=== PATIENT | female | born 1975 | race Caucasian/White ===

== ENCOUNTER 2017-12-06 14:09 | Day surgery (SDC) | payer OTHER ==
[2017-12-06 14:41] VITALS: BMI 22.9
[2017-12-06] MEDS ORDERED: LACTATED RINGERS SOLUTION 1,000 ML IV SCH (15:00)
--- NOTE | 2017-12-06 15:01 | HP ---
Admitting History and Physical - Admission Chief Complaint: left hand laceration History of Present Illness: 2 yo RHD female with no significant PMH presented 2 days chain saw left hand zone iii and iv extensor tendon laceration index middle and ring finger and Open left index proximal phalanx fracture. she sustained the injury on monday 12/04, was seen at [facility]. hand wounds cleaned and skin repaired. started on oral antibiotics, was not splinted. She presented here when her scheduled surgery was cancelled. We were asked to assess. History Source: Patient, Medical Record Limitations to Obtaining History: No Limitations - Past Medical History ...LMP: 11/15/17 - Smoking History Smoking history: Never smoked Have you smoked in the past 12 months: No - Alcohol/Substance Use Hx Alcohol Use: No - Social History Usual Living Arrangement: Yes: With Spouse Home Medications - Allergies Allergies/Adverse Reactions: Allergies Allergy/AdvReac Type Severity Reaction Status Date / Time No Known Allergies Allergy Verified 12/06/17 14:53 - Home Medications Home Medications: Ambulatory Orders Amoxicillin/Potassium Clav [Augmentin 875-125 Tablet] 1 each PO BID 12/06/17 Review of Systems - Review of Systems Constitutional: denies: Chills, Fever Eyes: denies: Blind Spots, Blurred Vision HENT: denies: Difficult Swallowing Neck: denies: Decreased ROM, Lumps Cardiovascular: denies: Chest Pain, Palpitations Respiratory: denies: Cough, SOB Gastrointestinal: denies: Abdominal Pain, Constipation, Diarrhea Genitourinary: denies: Flank Pain, Frequency Breasts: denies: Lumps, Pain Musculoskeletal: denies: Back Pain, Muscle Pain, Muscle Cramps, Muscle Weakness Neurological: denies: Change in LOC, Change in Speech Endocrine: denies: Excessive Sweating, Unexplained Weight Gain, Unexplained Weight Loss Hematology/Lymphatic: denies: Easily Bruised, Excessive Bleeding Psychiatric: denies: Anxiety, Depression Physical Examination Vital Signs: Vital Signs Temperature 97.5 F L 12/06/17 14:48 Pulse Rate 63 12/06/17 14:48 Respiratory Rate 16 12/06/17 14:48 Blood Pressure 132/80 12/06/17 14:48 O2 Sat by Pulse Oximetry (%) 97 12/06/17 14:45 Constitutional: Yes: Well Nourished, No Distress, Calm Eyes: Yes: Conjunctiva Clear, EOM Intact HENT: Yes: Atraumatic, Normocephalic Neck: Yes: Supple, Trachea Midline Cardiovascular: Yes: Regular Rate and Rhythm, S1, S2 Respiratory: Yes: Regular, CTA Bilaterally Gastrointestinal: Yes: Normal Bowel Sounds, Soft ...Rectal Exam: Yes: Deferred Renal/: No: CVA Tenderness - Left, CVA Tenderness - Right Musculoskeletal: No: Joint Swelling, Muscle Pain, Muscle Weakness Extremities: Yes: Other (left hand dorsal zone iii and iv tendon lacertaion with index is weak extension, middle). No: Calf Tenderness, Cool, Erythema Edema: LUE: 1+ (limited to fingers and dorsum of the hand ) Peripheral Pulses: Left Radial: 2+, Right Radial: 2+ Integumentary: No: Jaundice, Rash Neurological: Yes: Alert, Oriented Psychiatric: Yes: Alert, Oriented Imaging - Results X-ray: Report Reviewed, Image Reviewed (left index finger proximal radial condyle cortical defect) Problem List - Problems (1) Extensor tendon laceration of finger with open wound Assessment/Plan: 42 yo RHD female with no significant PMH presented 2 days chain saw left hand zone iii and iv extensor tendon laceration index middle and ring finger and Open left index proximal phalanx fracture. NPO IVF IV antibiotics Urgent OR Discussed with patient risks, benefits and alternatives of left hand wound 2- 4th digit wound exploration and report of extensor tendons, including but not limited to bleeding, infection, injury to adjacent structures, loss of function , need for further procedures, ; alternatives include antibiotics, delayed or no surgery - risks of this include failure of nonoperative therapy, stiffness and loss of function, recurrence. Patient desires to proceed with operation - will take to OR for above. Informed consent signed for same. Code(s): S66.529A - LACERAT INTRNS MUSC/FASC/TEND UNSP FNGR AT WRS/HND LV, INIT ; S61.209A - UNSP OPEN WOUND OF UNSP FINGER W/O DAMAGE TO NAIL, INIT Qualifiers: Encounter type: subsequent encounter Qualified Code(s): S66.529D - Laceration of intrinsic muscle, fascia and tendon of unspecified finger at wrist and hand level, subsequent encounter; S61.209D - Unspecified open wound of unspecified finger without damage to nail, subsequent encounter; S61.209D - Unspecified open wound of unspecified finger without damage to nail, subsequent encounter (2) Open fracture proximal phalanx finger Code(s): S62.619B - DISP FX OF PROXIMAL PHALANX OF UNSP FINGER, INIT FOR OPN FX Qualifiers: Encounter type: subsequent encounter Finger: index finger Laterality: left (3) Migraine Code(s): G43.909 - MIGRAINE, UNSP, NOT INTRACTABLE, WITHOUT STATUS MIGRAINOSUS
[2017-12-06] MEDS ORDERED: PIPERACILLIN/TAZOB 3.375 GM 3.375 GM in DEXTROSE 5%-WATER - 50 ML IVPB ONE (16:21)
[2017-12-06] MEDS ORDERED: ROPIVACAINE HCL 0.5% 30ML VIAL ONE (16:49)
[2017-12-06] MEDS ORDERED: DEXAMETHASONE SOD PHOSPHATE/PF 10 MG/ML SDV ONE (16:50)
[2017-12-06] MEDS ORDERED: MIDAZOLAM HCL 2 MG/2 ML SINGLE DOSE VIAL ONE ×2 (16:51)
[2017-12-06] MEDS ORDERED: PROPOFOL 20 ML ONE ×2 (17:13)
[2017-12-06] MEDS ORDERED: PIPERACILLIN/TAZOBACTAM 3.375 GM VIAL IVPB ONE (17:36)
[2017-12-06] MEDS ORDERED: BACITRACIN 15 GM TUBE TOPICAL OINTMENT ONE (18:18)
[2017-12-06] MEDS ORDERED: LIDOCAINE 1%/EPI 1:100000 (20 ML MULTI DOSE VIAL) ONE (18:18)
[2017-12-06] MEDS ORDERED: oxyCODONE HCL 5 MG TABLET PO PRN (18:53)
[2017-12-06] MEDS ORDERED: ACETAMINOPHEN 325 MG TABLET (FP) PO PRN (18:53)
[2017-12-06] MEDS ORDERED: ONDANSETRON 4 MG/2 ML VIAL IVPUSH PRN (18:53)
--- NOTE | 2017-12-06 18:59 | OP ---
Operative Note - Note: Operative Date: 12/06/17 Pre-Operative Diagnosis: chain saw laceration left index middle and ring finger Operation: exploration of left index middle and ring finger, repair of extensor tendon zone III 80% middle and repair of extensor tendon zone III 60% index Findings: extensor tendon zone III 80% middle extensor tendon zone III 60% index Tourniquet time: 1:03 at 250mmhg Implants: k wire 0.45 X2 internal splint Post-Operative Diagnosis: Same as Pre-op Surgeon: Mike Hwang Anesthesiologist/FRUIT DUMPER: Siddhartha Esparza Anesthesia: Local (left supraclavicular block), MAC Specimens Removed: none Estimated Blood Loss (mls): 2 Instrument used (Debridements only): scapel, scissors tenotomy, Drains & Tubes with Location: none Fluid Volume Replaced (mls): 1,000 Operative Report Dictated: Yes
--- NOTE | 2017-12-06 19:19 | DS ---
Physical Examination Vital Signs: Vital Signs Temperature 97.5 F L 12/06/17 14:48 Pulse Rate 63 12/06/17 14:48 Respiratory Rate 16 12/06/17 14:48 Blood Pressure 132/80 12/06/17 14:48 O2 Sat by Pulse Oximetry (%) 97 12/06/17 14:45 Constitutional: Yes: Well Nourished, No Distress, Calm Eyes: Yes: Conjunctiva Clear, EOM Intact HENT: Yes: Atraumatic, Normocephalic Neck: Yes: Supple, Trachea Midline Cardiovascular: Yes: Regular Rate and Rhythm, S1, S2 Respiratory: Yes: Regular, CTA Bilaterally Gastrointestinal: Yes: Normal Bowel Sounds, Soft ...Rectal Exam: Yes: Deferred Renal/: No: CVA Tenderness - Left, CVA Tenderness - Right Extremities: No: Cool, Cyanosis Edema: Yes Edema: LUE: 1+ Peripheral Pulses WNL: Yes Peripheral Pulses: Left Radial: 2+, Right Radial: 2+ Integumentary: No: Rash Wound/Incision: Yes: Clean/Dry, Well Approximated, Dressing Dry and Intact, Other (left arm volar resting splint position of function) Neurological: Yes: Alert, Oriented Psychiatric: Yes: Alert, Oriented Discharge Summary Reason For Visit: LEFT HAND LACERATION Current Active Problems Extensor tendon laceration of finger with open wound (Acute) Open fracture proximal phalanx finger (Acute) Procedures: Principal: repair extensor tendon zone III 80% middle and repair of extensor tendon zone III 60% index Hospital Course: admitted for urgent operative repair of chain saw laceration sustained 2 days earlier. Condition: Improved - Instructions Diet, Activity, Other Instructions: Postoperative instructions: You had a wound exploration and laceration repairs on 12/06/[address] Mike Hwang of [facility]. Activity: Keep you left arm splint clean an dry. Elevate you left arm above heart level when laying in bed. Eat lightly at first, but advance to your usual diet as tolerated. Pain: For pain, you may use and alternate Tylenol (acetaminophen) and/or ibuprofen every 6 hours each as needed; this means that you can take one OR the other at 3-hour intervals. If you are prescribed a Tylenol/narcotic combination for severe pain, use it instead of plain Tylenol as needed and switch back when your pain starts decreasing. Do not take more than 4000mg of acetaminophen in a day. Take medications as prescribed or indicated on the labeling. Follow-up: Call Dr. Hwang' office at [phone] to make your postop appointment (Wednesday 1-2 weeks after surgery as advised). Clinic is held in the [facility] on the first floor of [facility]. Call the office if you have: * increasing pain not responsive to pain medication * fever of 101F or higher * unusual or increasing bleeding or drainage from wounds * increasing redness or swelling at wound sites Also, see your primary medical doctor within 1-2 weeks. Disposition: HOME - Home Medications Comprehensive Discharge Medication List: Ambulatory Orders Cephalexin Monohydrate [Keflex -] 500 mg PO Q6H 7 Days #28 capsule 12/06/17 Oxycodone HCl/Acetaminophen [Percocet 5/325 -] 1 - 2 tab PO Q6H #40 tab MDD 6 Sulfamethoxazole/Trimethoprim [Bactrim Ds Tablet] 1 each PO BID 7 Days #14 tablet 12/06/17
[2017-12-06 20:20] VITALS: BP 108/72; PULSE 75; TEMP 98
--- NOTE | 2017-12-06 20:26 | OP ---
DATE OF OPERATION: 12/06/2017 PREOPERATIVE DIAGNOSIS: Left hand chainsaw laceration, extensor tendon zone III. POSTOPERATIVE DIAGNOSIS: Left hand chainsaw laceration, extensor tendon zone III. PROCEDURE: 1. Left hand exploration of index, middle, and ring finger zone III. 2. Primary repair, extensor tendon, middle finger 80% laceration, zone III including central slip. 3. Primary repair, left index finger, zone III, 60% laceration. ATTENDING SURGEON: Mike Hwang MD EMOTIONAL DISABILITIES TEACHER: No one. ANESTHESIOLOGIST: Siddhartha Esparza DO ANESTHESIA TYPE: MAC with a left supraclavicular block. ESTIMATED BLOOD LOSS: 2 mL TOURNIQUET TIME: 1 hour and 3 minutes. INTRAVENOUS FLUID ADMINISTERED: Crystalloid 1 L. INDICATION: Patient presented subacutely after sustaining a chainsaw laceration of the left hand accidentally 2 days earlier on December 04, 2017. She had initial treatment at [facility] where she received first aid, wound closure, tetanus shot, intravenous antibiotics, and was started on oral course of antibiotics. She was counseled regarding the need for exploration given extensor lag for the index and middle fingers. She also had a chip fracture to the proximal phalanx which was intraarticular of the index finger. She was counseled regarding the need for exploration and repair, signed informed consent, after she was explained the risks, benefits, and alternatives, and she was taken for the procedure. DESCRIPTION OF PROCEDURE: Patient was brought to the operating room and placed in supine position on the operating table with the left arm extended at 90 degrees perpendicular to the body's axis in the midline. Left hand was prepped and draped into a standard surgical field. Tourniquet was applied preoperatively. Lower extremity SCDs were placed. Patient received intravenous antibiotics in the form of Zosyn 3.375 g based on weight given her tetanus-prone wound. The left arm was prepped and draped sterilely into a standard surgical area. At which point, we proceeded then with a formal timeout, identifying the operative site and digits. We then proceeded with exsanguinating the arm and inflating a tourniquet to a pressure of 250 mmHg. Upon this, we started first with exploration from the least-injured finger, the ring, from zone III. We extended laterally from the proximal interphalangeal joint to elevate the skin. The area was then debrided. The extensor tendon was visualized, and passive motion appeared to be 100% intact and non-lacerated. We moved radially towards with our exploration of the left thumb. The middle finger was explored through a similar laceration-extension incision, and at this point, it was clear that there was a zone III, 80% laceration including the central slip which had avulsed and was irregular in its border. The decision was made at this point to transfix the distal interphalangeal and proximal interphalangeal joints using Shannan wires. Shannan wire 0.045 was inserted, standing technique, putting the digit in neutral extension at 180 degrees across the joints. It was guided in under direct visualization, through and through the mid-body, leaving the finger in neutral extension. With this done, we were able to debride the and necrotic tissue, skin, including bone in the joint. At which point, we then proceeded with a standard tendon repair for the extensor tendon, zone III, including the central slip. A modified Cannon stitch using a 2-0 Ethibond suture was laid in and tied. This approximated the cut suture edges. The 6-0 Prolene was then used to approximate the frayed edges of extensor tendon where it could be visualized and approximated and apposed prior to the trifurcation of the extensor complex. With this completed, we proceeded with standard closure 4-0 nylon of the ring and the middle fingers. We then turned our attention to the index finger. In similar fashion, the finger was transfixed in neutral extension across the distal interphalangeal/proximal interphalangeal joints using a Shannan wire 0.045 and small power driving the Shannan wire through and through to transfix the joints in neutral extension. With this completed, we were able to debride what appeared to be a small amount of hematoma; bone fragments from the proximal interphalangeal joint; ragged, frayed, and devitalized tendon and skin, and in similar fashion, a modified Cannon stitch was used to approximate the edges of the extensor tendon, 60% laceration in this case in zone III. Once completed, 6-0 Prolene was again used to approximate the frayed edges of tendon to allow for an adequate repair. The skin was then finally debrided and approximated using 4-0 nylon in interrupted fashion. Once complete, the patient was then splinted using a volar resting splint in a position of function with the core of the left hand in neutral extension, 70% at the metacarpophalangeal joints with maximum stretch on the collateral ligaments, and 30% hyperextension at the wrist. The patient had a splint placed. Sterile dressings were placed, bacitracin, Xeroform, gauze with protection, and then Webril and the splint placement. She was awoken from general anesthesia, having tolerated the procedure well. She was stable throughout the procedure after receiving only sedation. She returned to Recovery in stable condition and given prescription for oral antibiotics, broader-spectrum coverage to address again the tetanus-prone wound that was apparent with a chainsaw, and she was also provided with pain medication and instructions to follow up in a period of 2 weeks. MD WANDA Coffman/[id number]
== END 2017-12-06 20:15 | disposition home or self-care (01) ==
LOC: JASU-SURG 14:09 → JASUSAT 14:09
PROC: 0JBK0ZZ Excision of Left Hand Subcutaneous Tissue and Fascia, Open Approach (ICD-10-PCS; 2017-12-06)
PROC: 0PBV0ZZ Excision of Left Finger Phalanx, Open Approach (ICD-10-PCS; 2017-12-06)
PROC: 0LQ80ZZ Repair Left Hand Tendon, Open Approach (ICD-10-PCS; principal; 2017-12-06 17:00)
DX: S66.321D Laceration of extensor muscle, fascia and tendon of left index finger at wrist and hand level, subsequent encounter (principal); S66.323D Laceration of extensor muscle, fascia and tendon of left middle finger at wrist and hand level, subsequent encounter; W29.3XXD Contact with powered garden and outdoor hand tools and machinery, subsequent encounter
CPT/HCPCS: 84703; 94760

== ENCOUNTER 2020-05-14 17:24 | Emergency (ER) | payer OTHER ==
--- NOTE | 2020-05-15 10:46 | TELE ---
HPI Do you have fever,cough or shortness of breath?: No - General Reason For Visit: VIRTUAL VISIT History Source: Patient Exam Limitations: No Limitations - History of Present Illness Associated Symptoms: reports: denies symptoms 05/15/20 10:43 45 y/o female presents [employer] for Seat [employer] for travel to [place] this upcoming Wednesday. Pt has no complaints, no recent illness, no smoking hx, or medical hx. Past History - Travel History Traveled outside of the country in the last 30 days: No Close contact w/someone who was outside of country & ill: No - Medical History Allergies/Adverse Reactions: Allergies Allergy/AdvReac Type Severity Reaction Status Date / Time No Known Allergies Allergy Verified 12/06/17 14:53 Home Medications: Ambulatory Orders Cephalexin Monohydrate [Keflex -] 500 mg PO Q6H 7 Days #28 capsule 12/06/17 Oxycodone HCl/Acetaminophen [Percocet 5/325 -] 1 - 2 tab PO Q6H #40 tab MDD 6 12/06/17 Sulfamethoxazole/Trimethoprim [Bactrim Ds Tablet] 1 each PO BID 7 Days #14 tablet 12/06/17 Anemia: No Asthma: No Cancer: No Cardiac Disorders: No CVA: No COPD: No CHF: No Dementia: No Diabetes: No GI Disorders: No Disorders: No HTN: No Hypercholesterolemia: No Liver Disease: No Seizures: No Thyroid Disease: No - Surgical History Abdominal Surgery: No Appendectomy: No Cardiac Surgery: No Cholecystectomy: No Lung Surgery: No Neurologic Surgery: No Orthopedic Surgery: Yes (REPAIR RT 2ND FINGER REPAIR;NASAL FX REPAIR) - Psycho-Social/Smoking History Patient Lives Alone: No Lives with/in: spouse/SO Smoking Status: No Smoking History: Never smoked Have you smoked in the past 12 months: No - Substance Abuse Hx (Audit-C & DAST Scrn) How often the patient has a drink containing alcohol: 2-4 times / month Review of Systems - Review of Systems Able to Perform ROS?: Yes Constitutional: No: Symptoms Reported HEENTM: No: Symptoms Reported Respiratory: No: Symptoms reported Cardiac (ROS): No: Symptoms Reported ABD/GI: No: Symptoms Reported : No: Symptoms Reported Musculoskeletal: No: Symptoms Reported Integumentary: No: Symptoms Reported Neurological: No: Symptoms reported Endocrine: No: Symptoms Reported Hematologic/Lymphatic: No: Symptoms Reported *Physical Exam - Physical Exam General Appearance: Yes: Nourished, Appropriately Dressed. No: Apparent Distress HEENT: positive: EOMI Neck: positive: Supple Respiratory/Chest: negative: Respiratory Distress Cardiovascular: negative: Edema Gastrointestinal/Abdominal: negative: Distended Extremity: positive: Normal Inspection Integumentary: positive: Normal Color Neurologic: positive: Motor Strength 5/5 (ambulatory) - Medical Decision Making 05/15/20 10:45 CC: here for covid testing for travel Exam: limited but otherwise normal Plan: covid test ordered Discharge Diagnosis at time of Disposition: Encounter for laboratory testing for COVID-19 virus - Referrals - Patient Instructions - Discharge Disposition: HOME Condition at time of Disposition: Good
== END 2020-05-15 10:48 | disposition home or self-care (01) ==
LOC: JVIRT 17:24
DX: Z11.59 Encounter for screening for other viral diseases (principal)
CPT/HCPCS: Q3014-GT

== ENCOUNTER 2020-07-19 07:24 | Emergency (ER) | payer OTHER | END 2020-07-19 07:59 | disposition home or self-care (01) | LOC: JVIRT 07:24 | DX: Z11.59 Encounter for screening for other viral diseases (principal); R09.81 Nasal congestion | CPT/HCPCS: C9803; Q3014-GT; U0003 ==